=== PATIENT | female | born 1995 | race Caucasian/White ===

== ENCOUNTER → 2020-06-03 09:33 | Outpatient (CLI) | payer OTHER, SELFPAY ==
[2020-06-03 11:07] LABS: Hematocrit 40.8 % (36-46); Hemoglobin 13.8 g/dL (12.0-16.0)
[2020-06-03 11:18] LABS: GTT (PREG) 1 Hour PP 50gm Dose 127 mg/dL (76-139)
== END ==
PROVIDERS: Referring Provider Specialist; Visit Provider Specialist
DX: Z34.82 Encounter for supervision of other normal pregnancy, second trimester (principal)
CPT/HCPCS: 36415; 82950; 85014; 85018

== ENCOUNTER 2020-08-24 15:45 | Outpatient (CLI) | payer OTHER, SELFPAY ==
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
== END 2020-08-24 16:35 | disposition home or self-care (01) ==
LOC: OB 08-30 09:21
PROVIDERS: Referring Provider Specialist; Visit Provider Specialist
DX: O10.913 Unspecified pre-existing hypertension complicating pregnancy, third trimester (principal); Z3A.38 38 weeks gestation of pregnancy
CPT/HCPCS: 59025; G0378; G0379

== ENCOUNTER 2020-08-27 21:15 | Inpatient (IN) | payer OTHER, SELFPAY ==
[2020-08-27 22:38] LABS: COVID19 - ADMIT (NP swab/PCR) Negative (Negative)
[2020-08-27 23:59] LABS: Add Manual Diff / Slide Review NO; Basophils Absolute Auto 100 /uL (0-100); Basophils Percent Auto 0.9 % (0-2); Eosinophils Absolute Auto 100 /uL (0-450); Eosinophils Percent Auto 0.5 % (2-4); Hematocrit 40.8 % (36-46); Hemoglobin 13.8 g/dL (12.0-16.0); Lymphocytes Absolute Auto 2000 /uL (1100-4500); Lymphocytes Percent Auto 16.4 % (25-40); Mean Corpuscular HGB Conc 33.7 % (30-36); Mean Corpuscular Hemoglobin 28.2 PG (26-34); Mean Corpuscular Volume 83.7 fL (80-100); Monocytes Absolute Auto 600 /uL (0-900); Monocytes Percent Auto 5.4 % (3-14); Neutrophils Absolute Auto 9300 /uL (1500-7000); Neutrophils Percent Auto 76.8 % (50-75); Platelet Count 198 X10^3/uL (150-400); Red Blood Cell Count 4.87 X10^6/uL (4.0-5.2); Red Cell Distribution Width 13.9 % (11.6-14.8); White Blood Cell Count 12.1 X10^3/uL (4.5-11.0)
[2020-08-28] LABS: Aspartate Aminotransferase 36 IU/L (14-36); BUN Creatinine Ratio 20.5 (6-22); Blood Urea Nitrogen 9 mg/dL (7-17); Estimated Glomerular Filt Rate > 60.0 mL/min (>60)
[2020-08-28] MEDS: LACTATED RINGERS 1,000 ML 100 ML IV ×2 (00:10→01:11)
[2020-08-28 00:39] LABS: Creatinine Urine Random 115.6 mg/dL; Protein (Total) Urine Random 27 mg/dL (0-12); Protein Creatinine Ratio Urine 0.23 GRAM/24H
[2020-08-28 01:40] VITALS: BP 107/63
[2020-08-28 03:02] LABS: Strep Grp B PCR NEG for Grp B Strep
--- NOTE | 2020-08-28 04:54 | P.PCNOB_ITS ---
Labor & Delivery Delivery date: 08/28/20 Intrapartal Events: Acceleration and Deceleration Cervical ripening method: none Induction method: none Delivery monitor: external FHT and external uterine Route of delivery: L&D Laceration Description: Perineal - 1st Degree (spontaneously hemostatic) Estimated blood loss (mL): 100 Anesthesia Type: Epidural Narrative: This patient was admitted in spontaneous latent labor. She progressed unaugmented after SROM for clear fluid, and after a 20 minute second stage was delivered of a healthy baby girl. There was no nuchal cord and the shoulders delivered with ease, though there was a compound left arm. Apgars were 8+9, weight 6#14. The placenta delivered spontaneously and intact shortly thereafter. Small 1st degree perineal lacerations were spontaneously hemostatic. There were no other intrapartum or immediate complications. [place] Baby 1: Infant gender: Female Presentation: vertex Position: Right Occiput Anterior Placenta delivery description: Spontaneous Cord Vessel Description: 3 Vessels score (1 min): 9 score (5 min): 9 Plan for aftercare: Routine care
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
[2020-08-28] MEDS: KETOROLAC 30 MG/ML VIAL IV ×2 (05:59→11:28)
[2020-08-28] MEDS: SERTRALINE 50 MG TABLET 150 MG PO (21:02)
[2020-08-29] MEDS: IBUPROFEN SUSP 100 MG/5 ML UDC 600 MG PO (09:22)
--- NOTE | 2020-08-29 10:50 | PM.OBDS.1 ---
Discharge Providers Provider Date of admission: 08/27/20 21:15 Discharge Date: 08/29/20 Primary care physician: Doctor Kathryn MD Consults: 08/27/20 23:09 Consult to Anesthesiology Urgent Comment: Consulting Provider: Anesthesiologist Reason for consultation: pain management Discharge provider: Debora Ortiz MD Summary Hospital Course Date Patient Seen: 08/29/20 Time Patient Seen: 10:50 Diagnoses: uncomplicated vaginal delivery Hospital Course: This patient was admitted in spontaneous labor. She progressed unaugmented and was delivered of a healthy baby girl without complications. A small 1st degree perineal laceration was spontaneously hemostatic and did not require sutures, and there were no intrapartum or complications. After an uneventful recovery, she was discharged on PPD#1 with routine follow up. Peripartum Data Infant Delivery Method: Natural Vaginal Laceration Description: Perineal - 1st Degree complications: none 1: Gender: Female Disposition of : home Status at Discharge Cognitive/behavioral status at discharge: oriented Functional status at discharge: independent ambulation Overall status at discharge: patient is progressing back to baseline Time Spent with Patient Time attestation: Total time spent providing and/or coordinating discharge services: Objective Labs Result Diagrams: 08/27/20 23:30 08/27/20 23:30 Exam Narrative Exam Narrative: Patient reports feeling well this AM. Ambulating, tolerating PO, voiding, passing flatus, moderate lochia, good pain control, no other concerns or symptoms. Const General: cooperative, healthy appearing, comfortable and well groomed Resp Effort & Inspection: normal respiratory effort Auscultation: clear to auscultation bilaterally Cardio Rate: regular rate Rhythm: regular rhythm GI Palpation: soft and No tender Extrem General: normal to inspection Discharge Plan Discharge Plan Patient Disposition: Home Discharge orders & Medications Prescriptions: Continued prenat.vits,saima,[id number] Tablet 1 tab PO DAILY RF: 0 sertraline 100 mg tablet 150 mg PO DAILY RF: 0 Discontinued aspirin 81 mg tablet,chewable 81 mg PO DAILY RF: 0 Follow up/Referrals: Rosmery Galarza MD [Physician] - 1 Month Diet/Activity/Treatments Diet: Regular Activity: Nothing in the vagina for 6 weeks. Avoid heavy lifting for 6 weeks. If you have increasing bleeding, fevers, chills, nausea, vomiting, headaches, visual changes, or any other symptoms or concerns, call or come to the emergency room. Skin/Wound/Dressing Care Report to your healthcare provider any signs of infection, such as:: chills, fever, night sweats, increased pain, unusual drainage and unusual redness Visit Report/Discharge Packet Instructions: DI for Labor and Delivery, Vaginal Discharge Data Primary Care Provider: Miscellaneous,Doctor
[2020-08-29 11:35] VITALS: BP 107/63; PULSE 80; RESP 18; TEMP 36.3
== END 2020-08-29 12:30 | disposition home or self-care (01) | DRG 807 ==
PROVIDERS: Admitting Provider Obstetrics & Gynecology; Referring Provider Obstetrics & Gynecology; Visit Provider Obstetrics & Gynecology
DX: O10.92 Unspecified pre-existing hypertension complicating childbirth (principal); Z37.0 Single live birth; Z3A.38 38 weeks gestation of pregnancy; O70.0 First degree perineal laceration during delivery; O99.344 Other mental disorders complicating childbirth; F41.8 Other specified anxiety disorders; Z20.822 Contact with and (suspected) exposure to COVID-19
CPT/HCPCS: 01967; 36415; 59050; 59400; 59409; 82570; 84156; 84450; 84550; 85025; 86850; 86900; 86901; 87635; 87653; C9803; G0379; J1885